=== PATIENT | male | born 1955 | race Caucasian/White ===

== ENCOUNTER → 2024-09-10 | Outpatient (CLI) | payer MEDICARE, OTHER ==
[~2024-09-10] MED LIST: METHACHOLINE KIT (6 VIAL.NEB PREMIX) INH ONE
== END ==
LOC: M CARPUL 08:15
PROVIDERS: ATTEND Physician Assistant
DX: R06.02 Shortness of breath (principal)

== ENCOUNTER → 2024-09-10 | Outpatient (CLI) | payer MEDICARE, OTHER | LOC: M RAD 07:56 | PROVIDERS: ATTEND Physician Assistant | DX: Z77.090 Contact with and (suspected) exposure to asbestos (principal); R06.02 Shortness of breath | CPT/HCPCS: 71250; 94070; 95070; J7674 ==